=== PATIENT | male | born 1975 | race Caucasian/White ===

== ENCOUNTER 2023-11-20 12:35 | Outpatient (REF) | payer OTHER, SELFPAY ==
--- NOTE | 2023-11-20 | ECG_ITS ---
Test Reason : cp Blood Pressure : / mmHG Vent. Rate : 091 BPM Atrial Rate : 091 BPM P-R Int : 140 ms QRS Dur : 086 ms QT Int : 358 ms P-R-T Axes : 058 012 048 degrees QTc Int : 440 ms Normal sinus rhythm Normal ECG No previous ECGs available Referred By: Fide Lan Electronically Signed By:VIDAL SONI MD
[2023-11-20 13:10] LABS: MANUAL DIFF FLAG NO
[2023-11-20 13:37] LABS: Basophils Absolute Auto 0.1 X10*3/uL (0.0-0.2); Basophils Percent Auto 0.9 % (0-2); Eosinophils Absolute Auto 0.1 X10*3/uL (0.0-0.4); Eosinophils Percent Auto 1.1 % (0-4); Hematocrit 46.8 % (42.0-52.0); Hemoglobin 15.7 g/dl (14.0-18.0); Imm Gran Abs Auto 0.01 X10*3/uL (0.00-0.03); Imm Gran Pct Auto 0.1 % (0.0-0.4); Lymphocytes Absolute Auto 2.9 X10*3/uL (1.2-4.9); Lymphocytes Percent Auto 32.8 % (20-40); Mean Corpuscular HGB Conc 33.5 g/dl (31.0-36.0); Mean Corpuscular Hemoglobin 29.7 pg (27.0-33.0); Mean Corpuscular Volume 88.5 fL (80.0-98.0); Mean Platelet Volume 10.5 fL (9.4-12.4); Monocytes Absolute Auto 0.5 X10*3/uL (0.1-1.2); Monocytes Percent Auto 5.2 % (2-11); Neutrophils Absolute Auto 5.3 x10*3/uL (2.0-8.3); Neutrophils Percent Auto 59.9 % (45-73); Platelet Count 279 X10*3/uL (160-400); Red Blood Count 5.29 X10*6/uL (4.60-5.80); Red Cell Distribution Width 13.3 % (11.0-16.0); White Blood Count 8.9 X10*3/uL (4.8-10.8)
[2023-11-20 13:58] LABS: Estimated Average Glucose 103 mg/dL; Hemoglobin A1c % 5.2 % (<6.0)
[2023-11-20 14:23] LABS: Erythrocyte Sedimentation Rate 10 MM/HR (0-15)
[2023-11-20 14:25] LABS: Appearance Urine Clear; Color Urine Yellow; Glucose Urine UA Negative (Negative); Leukocyte Esterase Urine Negative (Negative); Nitrite Urine Negative (Negative); PH 6.5 (5.0-9.0); Urine Blood Negative (Negative); Urine Ketones Negative (Negative); Urine Protein Negative (Neg-Trace)
[2023-11-20 14:33] LABS: Alanine Aminotransferase 21 U/L (0-40); Albumin Level 4.5 g/dL (3.5-5.0); Alkaline Phosphatase 70 U/L (39-117); Anion Gap 13 (12-20); Aspartate Amino Transferase 15 U/L (5-37); Bilirubin Total 0.3 mg/dL (0.0-1.0); Blood Urea Nitrogen 11 mg/dL (9-16); C Reactive Protein 0.38 mg/dL (< or = 0.50); Calcium 9.5 mg/dL (8.4-10.2); Carbon Dioxide 25 mmol/L (22-29); Chloride 107 mmol/L (96-108); Estimated Glomerular Filt Rate > 60; Glucose Random 98 mg/dL (60-115); Sodium 141 mmol/L (135-145); TSH reflex Free T4 1.76 uIU/mL (0.32-4.0); Total Protein 7.3 g/dL (6.5-8.0); Vitamin D 25-OH Total 29.9 ng/mL (>30)
[2023-11-20 14:46] LABS: Folate 7.8 ng/mL (> or = 4.0); Vitamin B12 374 pg/mL (200-900)
[2023-11-20 15:00] LABS: Amphetamine Screen Urine Not Detected (Not Detect); Barbiturates, Urine Not Detected (Not Detect); Benzodiazepines Screen Urine Not Detected (Not Detect); Cannabinoid Screen Urine POSITIVE (Not Detect); Cocaine Screen Urine Not Detected (Not Detect); Fentanyl, urine Not Detected (Not Detect); Opiate Screen Urine Not Detected (Not Detect); Phencyclidine Screen Urine Not Detected (Not Detect)
[2023-11-20 17:08] LABS: CT PCR NOT DETECTED (Not Detect.); NG PCR NOT DETECTED (Not Detect.)
[2023-11-22 03:51] LABS: Syphilis Screen Nonreactive (Nonreactive)
[2023-11-22 04:11] LABS: HBS Num1 0.17 mIU/mL (0-7.99); HIV AB/AG Nonreactive (Nonreactive); HIV Num 1 0.06 S/CO (0.00-0.99); ~HepC Num1 0.12 S/CO (0.00-0.79); ~Hepatitis B Surface Antibody NONREACTIVE (Nonreactive); ~Hepatitis C Antibody Nonreactive (Nonreactive)
== END 2023-11-20 12:36 | disposition home or self-care (01) ==
LOC: HO.LAB 12:35
PROVIDERS: PCP Nurse Practitioner Family; Visit Provider Psychiatry & Neurology Psychiatry
DX: F39 Unspecified mood [affective] disorder (principal); F90.9 Attention-deficit hyperactivity disorder, unspecified type
CPT/HCPCS: 0353U; 80053; 80307; 81003; 82306; 82607; 82746; 83036; 84443; 85025; 85652; 86140; 86706; 86780; 86803; 87389; 93005

== ENCOUNTER → 2023-11-20 12:51 | Outpatient (BNV) | payer OTHER, SELFPAY | PROVIDERS: PCP Nurse Practitioner Family; Visit Provider Internal Medicine Cardiovascular Disease | DX: R07.9 Chest pain, unspecified (principal) | CPT/HCPCS: 93010 ==

== ENCOUNTER → 2023-11-25 11:30 | Outpatient (BNV) | payer OTHER, SELFPAY | PROVIDERS: Visit Provider Psychiatry & Neurology Psychiatry | DX: F31.81 Bipolar II disorder (principal); F45.42 Pain disorder with related psychological factors; F43.10 Post-traumatic stress disorder, unspecified; F90.9 Attention-deficit hyperactivity disorder, unspecified type; F12.10 Cannabis abuse, uncomplicated | CPT/HCPCS: 90792; 99213 ==

== ENCOUNTER 2023-12-08 10:15 | Outpatient (RCR) | payer OTHER, SELFPAY ==
[2023-11-20 12:29] VITALS: BP 123/83; PULSE 86; TEMP 37.1
[2023-11-20 12:30] VITALS: BMI 24.8
--- NOTE | 2023-11-20 14:25 | PC.ADMIT ---
Patient is a 48 year old male who was referred to [facility] by his therapist d/t depression and anxiety sxs. Alessandro has been living in a wooden tent for the past 15 months reporting financial struggles and is currently unemployed. Patient reports chronic back pain and attends a weekly pain group. Reports he takes Cyclobenzaprine 10 mg for the pain. Last filled 07/21/23 for 30 tabs. He also uses Marijuana nightly for the pain. Patient reports he has a fireplace which is his only form of heat. He does not have running water. Reports he is not eligible for heat assistance. He has been working with his mental health social worker on getting services for his specific needs. He does not want to go to a detention as he does not feel he would be safe there. Prior to his current living situation he stated he was living in a house in [place] where there was drug use. He reports that he is an alcoholic however has not drank in 6 months. Reports drinking less than a 6 pack. Also reports remote history of using heroin trying it 3-4 times 20 years ago, Percocets, Vicodins, and Oxycodones used in the year 1999 as he was self medicating d/t back pain. Patient is ambulatory however is in a wheel chair d/t his back pain. He reports he has herniated discs, bulging disc, and sciatica. He attends a pain group weekly. He reports he has a new PCP who he has an appointment with December 29, 2023. 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 He also reports chronic tinnitus that has worsened since September of this year and arthritis. Patient is alert and oriented x4. Calm and cooperative. He presented with depressed mood and affect. Denied SI. He was given a copy of his safety plan if needed. He is concerned about his living situation and has been working with his mental health social worker regarding this. He is currently on a list for housing. Patient medications were reconciled with patient and patient's pharmacy. Last filled Dextroamphetamine 5mg BID 08/10/24 #60. He is using this PRN so he is able to get things done when needed including obtaining firewood for heat.
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
--- NOTE | 2023-11-24 22:26 | HO.PHPPROGNO ---
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 He reports that he is still having trouble sleeping, has been taking the gabapentin 600 mg qhs. He falls asleep a little easier but is having disrupted sleep, sometimes nightmares, some stress dreams. He complains of some mild dizziness or just feel a little weird for a short time, which he attributes to the duloxetine (20 mg). He does not feel it is putting him at any risk of instability or falls. He is willing to continue on the medication and I suggest he move the dose to the evening, which he agrees to do. VS in room today was 132/86 P 88. Will recheck tomorrow His living situation contributes and is difficult to manage. He made efforts to improve hygiene but is still quite difficult with his deprived living conditions. He continues to express his gratitude and is still quite labile. He feels he has no emotional continence/regulation. He has an intense affect and communication style, very friendly, but is behaviorally appropriate. There is no irritability noted, patient denies any issues with anger or agitation. We agree to discuss mood stabilizers when we meet for follow-up next. For now we will plan to increase the gabapentin to target sleep and hopefully to provider some relief of neuropathic pain issues. He seems reluctant/distrustful of engaging in physical therapy, which he says he has done before. WIll continue to discuss. Currently describes helplessness, transient hopelessness, denies any SI. No thoughts of harming self or others at this time. Medication Compliance: Yes Side effects from medications: No Attending Groups: Yes Review of Systems Acute medical concerns: No Mental Status Exam Mental Status Exam Narrative: Alert, oriented, in no acute distress. Calm, cooperative, engaged. Hygiene poor but improved. Minimal grooming, stained clothes. Seated in wheelchair. No psychomotor agitation or neurovegetative retardation. Eye contact maintained. Mood depressed, affect full range of affect, sad, brightens on contact, some lability, no irritability noted. Speech normal. Thought process circumstantial. Thought content related to stressors, +feelings of helplessness, hopelessness, transient SI without intention or plan. Denies any thoughts of harming self or others. Denies aggressive ideation or HI. No paranoia or delusional content elicited. No evidence of psychosis. Insight and judgment fair/fair but adequate. Diagnostics Vital Signs (24Hr): BMI result Body Mass Index 24.8 Assessment & Plan Assessment & Plan (1) Major depressive disorder, recurrent: Status: Acute Code(s): F33.9 - Major depressive disorder, recurrent, unspecified (2) Other specified persistent mood disorders: Status: Acute Code(s): F34.89 - Other specified persistent mood disorders (3) ADHD (attention deficit hyperactivity disorder): Qualifiers: Attention deficit-hyperactivity disorder type: unspecified Qualified Code(s): F90.9 - Attention-deficit hyperactivity disorder, unspecified type Status: Acute Code(s): F90.9 - Attention-deficit hyperactivity disorder, unspecified type (4) Pain disorder associated with psychological and physical factors: Status: Acute Code(s): F45.42 - Pain disorder with related psychological factors (5) Post traumatic stress disorder (PTSD): Status: Acute Code(s): F43.10 - Post-traumatic stress disorder, unspecified (6) Cannabis abuse: Status: Acute Code(s): F12.10 - Cannabis abuse, uncomplicated Plan continue duloxetine 20 mg qd increase gabapentin to 900 mg qhs (if not tolerated, pregabalin vs TCA) (if does not tolerate duloxetine, may start Lamcital vs SGA/abilify vs TCA) may consider starting augmentation depression/ADHD with modafinil discussed starting guanfacine ER to target anxiety/BP continue Adderall 5mg BID prn concentration (alternatively may consider modafinil vs memantine which also may help w pain) continue clonidine 0.1-0.2 mg BID PRN anxiety continue clonazepam 0.5 mg BID PRN anxiety attacks continue cyclobenzaprine 10 mg qhs prn sleep quetiapine 12.5 - 25 mg whs prn sleep (patient not currently utilizing) will obtain a [facility]CA EKG and Lab work reviewed - vitamin D insufficiency VS and UDS as indicated continue to monitor Patient educated on: diagnosis, medication risk/benefits and substance abuse Informed Consent: understands Reason for contiued partial hosp. stay Substantial Risk for: inability to function and med/psych decompensation Certification I certify that partial hospital treatment is medically necessary due to the symptoms and problems resulting from the patient's mental illness and the failure to treat the patient at the partial hospital level of care would likely result in the patient requiring inpatient psychiatric care which could not be prevented at a less intensive level of care. Total time managing care of this patient today __30__ minutes. Discharge Plan Discharge Attending provider: Fide Lan Medications: New duloxetine 20 mg capsule,delayed release(DR/EC) See Rx Instructions .ROUTE .COMPLEX Qty: 30 0RF Rx Instructions: take one tablet po daily for a week, then increase one tablet po BID gabapentin 600 mg tablet 300 - 600 mg PO BEDTIME Qty: 14 0RF Continued quetiapine 25 mg tablet 12.5 - 25 mg PO BEDTIME cyclobenzaprine 10 mg tablet 10 mg PO BEDTIME PRN (Reason: back spasms) Patient Comments: Patient stated he uses PRN and still has this medication if needed. Dr Lan is aware. Rx Instructions: Last filled June,. clonazepam 0.5 mg tablet 0.5 mg PO BID No Action clonidine HCl 0.1 mg tablet 0.1 - 0.2 mg PO BID PRN (Reason: anxiety) dextroamphetamine-amphetamine 5 mg tablet 1 tab PO BID PRN (Reason: concentration) Patient Comments: Patient reports he uses as needed. He stated he still has this medication if needed. Dr Lan is aware. Rx Instructions: Last filled 08/10/24 60 tabs.
--- NOTE | 2023-11-25 15:21 | HO.PHP ---
Alessandro asked [facility] staff member around receiving support around his pain. PHP staff member disclosed that our program does not address pain as we are a mental health service. PHP staff noted that we can provide him with resources to pain management if that is something he is seeking. Alessandro disclosed that is the whole reason he is in the program. PHP staff member disclosed that if he is in pain, she suggests that he goes to the ER to access referrals or seek support around medical issues. Alessandro noted that he is not going to go today but maybe at another point. [facility] staff member was receptive and encouraged him to continue to work on areas around his mental health. Alessandro was receptive and thanked the clinician for providing clarification on the program.
--- NOTE | 2023-11-26 08:08 | PC.NURSE ---
Per patient PCP records that were obtained patient had a PCP appointment with Pati Coleman NP from [facility] on 11/12/23 to address persistent pain. Review PCP records for further information. He also is seen by [facility].
--- NOTE | 2023-11-26 16:07 | HO.PHP ---
Client's case has been opened and reviewed in treatment team.
--- NOTE | 2023-11-27 23:40 | HO.PHPPROGNO ---
Subjective Subjective Date of Service: 11/27/23 Reason For Visit: anxiety,depression Interim History: Patient seen for follow-up. Discusses issues with trauma responses , bad interactions he has had with family, specifically his father, recently Last time he saw his dad he didnt get a hug. Ongoing complaints around inability to focus, getting easily overwhelmed by situations and information. Mundane tasks are very difficult on account of executive dysfunction, even prepping food, is difficult to mange the steps involved. Complains of feeling autistic . Doesn't take Adderall regularly because often squirrels it away, afraid to run out. Has upcoming appointment on 12/08. Medication Compliance: Yes Side effects from medications: No Attending Groups: Yes Review of Systems Acute medical concerns: No Mental Status Exam Mental Status Exam Narrative: Alert, oriented, in no acute distress. Calm, cooperative, engaged. Poor hygiene, minimal grooming, stained clothes. Seated in wheelchair. No psychomotor agitation or neurovegetative retardation. Eye contact maintained. Mood depressed, affect full range of affect, sad, brightens on contact, some lability, no irritability noted. Speech normal. Thought process circumstantial. Thought content related to stressors, +feelings of helplessness, hopelessness, transient SI without intention or plan. Denies any thoughts of harming self or others. Denies aggressive ideation or HI. No paranoia or delusional content elicited. No evidence of psychosis. Insight and judgment fair/fair but adequate. Diagnostics Vital Signs (24Hr): BMI result Body Mass Index 24.8 Assessment & Plan Assessment & Plan (1) Mild bipolar II disorder, major depressive episode, in full remission, with rapid cycling: Status: Acute Code(s): F31.81 - Bipolar II disorder (2) Pain disorder associated with psychological and physical factors: Status: Acute Code(s): F45.42 - Pain disorder with related psychological factors (3) Post traumatic stress disorder (PTSD): Status: Acute Code(s): F43.10 - Post-traumatic stress disorder, unspecified (4) ADHD (attention deficit hyperactivity disorder): Qualifiers: Attention deficit-hyperactivity disorder type: unspecified Qualified Code(s): F90.9 - Attention-deficit hyperactivity disorder, unspecified type Status: Acute Code(s): F90.9 - Attention-deficit hyperactivity disorder, unspecified type (5) Cannabis abuse: Status: Acute Code(s): F12.10 - Cannabis abuse, uncomplicated Plan start Abilify 2 mg qhs start guanfacine ER qd in afternoon/evening discontinue gabapentin will plan to switch to Lyrica next week Patient educated on: diagnosis, medication risk/benefits and substance abuse Informed Consent: understands Reason for contiued partial hosp. stay Substantial Risk for: inability to function and med/psych decompensation Certification I certify that partial hospital treatment is medically necessary due to the symptoms and problems resulting from the patient's mental illness and the failure to treat the patient at the partial hospital level of care would likely result in the patient requiring inpatient psychiatric care which could not be prevented at a less intensive level of care. Total time managing care of this patient today __30__ minutes. Discharge Plan Discharge Attending provider: Fide Lan Medications: New gabapentin 600 mg tablet 300 - 600 mg PO BEDTIME Qty: 14 0RF aripiprazole 2 mg tablet 2 mg PO BEDTIME Qty: 20 0RF pregabalin [Lyrica] 25 mg capsule 25 mg PO BID Qty: 30 0RF guanfacine 1 mg tablet extended release 24 hr 1 mg PO DAILY Qty: 20 0RF modafinil 100 mg tablet 100 mg PO QAM Qty: 20 0RF Continued cyclobenzaprine 10 mg tablet 10 mg PO BEDTIME PRN (Reason: back spasms) Patient Comments: Patient stated he uses PRN and still has this medication if needed. Dr Lan is aware. Rx Instructions: Last filled June,. clonazepam 0.5 mg tablet 0.5 mg PO BID 20 Days Qty: 40 0RF Discontinued quetiapine 25 mg tablet 12.5 - 25 mg PO BEDTIME clonidine HCl 0.1 mg tablet 0.1 - 0.2 mg PO BID PRN (Reason: anxiety) No Action dextroamphetamine-amphetamine 5 mg tablet 1 tab PO BID PRN (Reason: concentration) Patient Comments: Patient reports he uses as needed. He stated he still has this medication if needed. Dr Lan is aware. Rx Instructions: Last filled 08/10/24 60 tabs. Stand Alone Forms: Patient Portal Discharge page Patient Education: Bipolar Disorder (DC) Print Language: Nepali
--- NOTE | 2023-12-08 22:15 | P.PNPSP_ITS ---
Subjective Subjective Date of Service: 12/08/23 Reason For Visit: anxiety,depression Interim History: Patient seen for follow-up, anticipating discharge at the end of program today.? Reports no acute issues or concerns. Medication compliant, medications well- tolerated. Denies any adverse effects.? Mood is stable.?Still feels he has a ways to go ADHD and cognitive dysfunction still problematic but says he is feeling more hopeful and is appreciative of his OP treaters and the support he has received. He also notes he will be seeing a neurologist today which he is looking forward to. He reports he slept great and has been eating more regularly. Appetite is recovering. He will be following up with his PCP Pati Coleman. Denies any hopelessness or SI. Denies thoughts of harming self or others at this time. Denies any aggressive ideation or HI. Denies any paranoia or AH or VH. Sleep, appetite, energy improving. Mental Status Exam Mental Status Exam Narrative: Alert, oriented, in no acute distress. Calm, cooperative, engaged. Poor hygiene, minimal grooming, stained clothes and hands. Seated in wheelchair, is capable to ambulate, but pain prevents him. Eye contact maintained. Mood better , affect full range of affect, brightens on contact, no lability, no irritability noted. Speech normal. Thought process circumstantial. Thought content related to stressors, +feelings of helplessness, trnasient hopelessness, but denies any SI. Denies any thoughts of harming self or others. Denies aggressive ideation or HI. No paranoia or delusional content elicited. No evidence of psychosis. Insight and judgment fair/fair but adequate. Diagnostics Vital Signs (24Hr): BMI result Body Mass Index 24.8 Assessment & Plan Assessment & Plan (1) Mild bipolar II disorder, major depressive episode, in full remission, with rapid cycling: Status: Acute Code(s): F31.81 - Bipolar II disorder (2) Pain disorder associated with psychological and physical factors: Status: Acute Code(s): F45.42 - Pain disorder with related psychological factors (3) Post traumatic stress disorder (PTSD): Status: Acute Code(s): F43.10 - Post-traumatic stress disorder, unspecified (4) ADHD (attention deficit hyperactivity disorder): Qualifiers: Attention deficit-hyperactivity disorder type: unspecified Qualified Code(s): F90.9 - Attention-deficit hyperactivity disorder, unspecified type Status: Acute Code(s): F90.9 - Attention-deficit hyperactivity disorder, unspecified type (5) Cannabis abuse: Status: Acute Code(s): F12.10 - Cannabis abuse, uncomplicated Plan Discharge from [facility] continue regular medications will defer further medication management to outpatient provider Refills sent to pharmacy Patient educated on: diagnosis, medication risk/benefits, substance abuse and TMS Informed Consent: understands Reason for contiued partial hosp. stay Substantial Risk for: stable for discharge Certification I certify that partial hospital treatment is medically necessary due to the symptoms and problems resulting from the patient's mental illness and the failure to treat the patient at the partial hospital level of care would likely result in the patient requiring inpatient psychiatric care which could not be prevented at a less intensive level of care. Total time managing care of this patient today __30__ minutes. Discharge Plan Discharge Attending provider: Fide Lan Medications: New gabapentin 600 mg tablet 300 - 600 mg PO BEDTIME Qty: 14 0RF aripiprazole 2 mg tablet 2 mg PO BEDTIME Qty: 20 0RF pregabalin [Lyrica] 25 mg capsule 25 mg PO BID Qty: 30 0RF guanfacine 1 mg tablet extended release 24 hr 1 mg PO DAILY Qty: 20 0RF modafinil 100 mg tablet 100 mg PO QAM Qty: 20 0RF Continued cyclobenzaprine 10 mg tablet 10 mg PO BEDTIME PRN (Reason: back spasms) Patient Comments: Patient stated he uses PRN and still has this medication if needed. Dr Lan is aware. Rx Instructions: Last filled June,. clonazepam 0.5 mg tablet 0.5 mg PO BID 20 Days Qty: 40 0RF Discontinued quetiapine 25 mg tablet 12.5 - 25 mg PO BEDTIME clonidine HCl 0.1 mg tablet 0.1 - 0.2 mg PO BID PRN (Reason: anxiety) No Action dextroamphetamine-amphetamine 5 mg tablet 1 tab PO BID PRN (Reason: concentration) Patient Comments: Patient reports he uses as needed. He stated he still has this medication if needed. Dr Lan is aware. Rx Instructions: Last filled 08/10/24 60 tabs. Stand Alone Forms: Patient Portal Discharge page Patient Education: Bipolar Disorder (DC) Print Language: Trinidadian
== END 2023-12-08 23:59 | disposition home or self-care (01) ==
LOC: HO.PHPA 10:15
PROVIDERS: Visit Provider Psychiatry & Neurology Psychiatry
DX: F33.9 Major depressive disorder, recurrent, unspecified (principal); F34.89 Other specified persistent mood disorders; F90.9 Attention-deficit hyperactivity disorder, unspecified type; F45.42 Pain disorder with related psychological factors; F43.10 Post-traumatic stress disorder, unspecified; F12.10 Cannabis abuse, uncomplicated; Z79.899 Other long term (current) drug therapy
CPT/HCPCS: 90791; 90853

== ENCOUNTER → 2025-02-02 07:39 | Outpatient (REF) | payer OTHER, SELFPAY ==
--- NOTE | 2025-02-02 07:46 | ECG_ITS ---
Test Reason : QTC CHECK Blood Pressure : */* mmHG Vent. Rate : 85 BPM Atrial Rate : 85 BPM P-R Int : 142 ms QRS Dur : 96 ms QT Int : 362 ms P-R-T Axes : 55 12 64 degrees QTcB Int : 430 ms Normal sinus rhythm with sinus arrhythmia Normal ECG When compared with ECG of 20-Nov-2023 12:51, No significant change was found Referred By: Fide Lan Electronically Signed By: SG PACHECO
[2025-02-02 08:03] LABS: MANUAL DIFF FLAG NO
[2025-02-02 08:10] LABS: Basophils Absolute Auto 0.1 X10*3/uL (0.0-0.2); Basophils Percent Auto 0.7 % (0-2); Eosinophils Absolute Auto 0.1 X10*3/uL (0.0-0.4); Eosinophils Percent Auto 1.2 % (0-4); Hematocrit 46.2 % (42.0-52.0); Hemoglobin 15.8 g/dl (14.0-18.0); Imm Gran Abs Auto 0.04 X10*3/uL (0.00-0.03); Imm Gran Pct Auto 0.5 % (0.0-0.4); Lymphocytes Percent Auto 25.8 % (20-40); Mean Corpuscular HGB Conc 34.2 g/dl (31.0-36.0); Mean Corpuscular Hemoglobin 29.4 pg (27.0-33.0); Mean Platelet Volume 10.1 fL (9.4-12.4); Monocytes Absolute Auto 0.4 X10*3/uL (0.1-1.2); Monocytes Percent Auto 5.5 % (2-11); Neutrophils Percent Auto 66.3 % (45-73); Platelet Count 270 X10*3/uL (160-400); Red Blood Count 5.37 X10*6/uL (4.60-5.80); Red Cell Distribution Width 12.9 % (11.0-16.0); White Blood Count 7.6 X10*3/uL (4.8-10.8)
[2025-02-02 08:25] LABS: Appearance Urine Clear; Color Urine Yellow; Glucose Urine UA Negative (Negative); Leukocyte Esterase Urine Negative (Negative); Nitrite Urine Negative (Negative); PH 6.5 (5.0-9.0); Specific Gravity - Urine <= 1.005 (1.005-1.025); Urine Blood Negative (Negative); Urine Ketones Negative (Negative); Urine Protein Negative (Neg-Trace)
[2025-02-02 08:44] LABS: Parathyroid Hormone Intact 78.9 pg/mL (8.7-77.1)
[2025-02-02 08:58] LABS: Alanine Aminotransferase 21 U/L (0-40); Albumin Level 4.5 g/dL (3.5-5.0); Alkaline Phosphatase 84 U/L (39-117); Anion Gap 12 (12-20); Aspartate Amino Transferase 23 U/L (5-37); Bilirubin Total 0.3 mg/dL (0.0-1.0); Blood Urea Nitrogen 10 mg/dL (9-16); C Reactive Protein 1.23 mg/dL (< or = 0.50); Calcium 9.5 mg/dL (8.4-10.2); Carbon Dioxide 23 mmol/L (22-29); Chloride 108 mmol/L (96-108); Cholesterol 234 mg/dL (<200); Erythrocyte Sedimentation Rate 10 MM/HR (0-15); Estimated Glomerular Filt Rate > 60; Glucose Fasting 113 mg/dL (60-99); HDL Cholesterol 30 mg/dL (>40); Iron 44 mcg/dL (45-160); LDL Cholesterol Calculated 169 mg/dL (<100); Magnesium 2.2 mg/dL (1.6-2.6); Percent Iron Saturation 15 % (15-50); Phosphorus 2.4 mg/dL (2.7-4.5); Potassium 4.1 mmol/L (3.3-5.1); Sodium 139 mmol/L (135-145); Total Iron Binding Capacity 298 mcg/dL (228-428); Total Protein 7.2 g/dL (6.5-8.0); Triglycerides 175 mg/dL (<150); Unsaturated Iron Binding 254 ug/dL; Uric Acid 6.7 mg/dL (3.4-7.0)
[2025-02-02 09:10] LABS: Ferritin 109 ng/mL (20-250); Free T4 (Free Thyroxine) 0.99 ng/dL (0.71-1.85); Thyroid Stimulating Hormone 1.35 uIU/mL (0.32-4.0); Vitamin D 25-OH Total 10.3 ng/mL (>30)
[2025-02-02 09:11] LABS: Vitamin B12 247 pg/mL (200-900)
[2025-02-02 09:25] LABS: Estimated Average Glucose 111 mg/dL; Hemoglobin A1C 149.9859 umol/L; Hemoglobin A1c % 5.5 % (<6.0); Total Hemoglobin (HGBA1C) 4136.2664 umol/L
[2025-02-06 13:07] LABS: Vitamin B6 8.1 ng/mL (2.1-21.7)
[2025-02-07 08:08] LABS: Methylmalonic Acid 93 nmol/L (55-335)
== END | disposition home or self-care (01) ==
LOC: HO.CARD 07:39
PROVIDERS: PCP Nurse Practitioner Family; Visit Provider Psychiatry & Neurology Psychiatry
DX: F39 Unspecified mood [affective] disorder (principal); R53.82 Chronic fatigue, unspecified; F45.9 Somatoform disorder, unspecified; Z13.1 Encounter for screening for diabetes mellitus; Z13.6 Encounter for screening for cardiovascular disorders
CPT/HCPCS: 36415; 80053; 80061; 81003; 82306; 82550; 82607; 82728; 82746; 83036; 83090; 83540; 83735; 83921; 83970; 84100; 84207; 84425; 84439; 84443; 84550; 85025; 85652; 86140; 93005

== ENCOUNTER → 2025-02-02 07:46 | Outpatient (BNV) | payer OTHER, SELFPAY | PROVIDERS: PCP Nurse Practitioner Family; Visit Provider Internal Medicine | DX: Z13.6 Encounter for screening for cardiovascular disorders (principal) | CPT/HCPCS: 93010 ==

== ENCOUNTER 2025-02-07 09:15 | Outpatient (RCR) | payer OTHER, SELFPAY ==
[2025-01-25 13:07] VITALS: BP 108/70; PULSE 72; TEMP 37.2
[2025-01-25 13:10] VITALS: BMI 27.8
--- NOTE | 2025-01-25 14:28 | PC.ADMIT ---
Patient is a 49 year old single male who was referred to [facility] by his therapist d/t increased depression and anxiety sxs. Patient struggling with many stresses including financial, housing, unemployment and chronic back pain. Patient has been living in a wooden tent and utilizes a fireplace for heat. He reports being on many waiting lists for housing. Patient utilizes a recumbent wheel chair to sit in d/t chronic back pain. He is able to ambulate without assistance. He stated he takes more than 200 steps a day. Denied any history of falls. Patient is alert and oriented x4. He is calm and cooperative. He presented with depressed mood and affect. He reports passive SI stating he has had this most of his life however he denied any plans or intention of killing himself. He was given a copy of his safety plan if needed. Medication list updated with patient and patient's pharmacy. Patient reports he is taking medications as prescribed
--- NOTE | 2025-01-25 21:00 | HO.PS.ADMBH ---
HPI Date of Service: 01/25/25 Chief Complaint: depression,anxiety Sources of Information: patient interviewed, chart reviewed and crisis/core team assessment reviewed HPI Narrative: Patient is a single 49 year old male on disability with history of depression, anxiety, chronic fatigue, executive dysfunction, memory impairment (likely ADHD as well as other causes of cognitive impairment), complex medical problems including chronic back pain,, deconditioning with chronic stressors involving homelessness and isolation due to financial constraints and complex medical issues and limited social supports outside of his medical and treaters, who was referred by his outpatient therapist for worsening mood and anxiety, negatively impacting functioning since this past winter. He is known to [facility] from prior admission in 10/2023 with struggles with mood dysregulation, lability, e is living situation contributes and is difficult to manage. with outpatient therapist and providers for ongoing struggles with mental and physical health problems, particularly lower back pain and mobility issues, that have been causing significant impairment in functioning and ability to care for self. Today, patient reports having long-standing cognitive issues, the exact nature of he is unclear, but describes emotional and attentional dysregulation, poor stress tolerance, getting easily overwhelmed by simple day-to-day tasks, and general executive dysfunction. Sleep is challenging on account of needing to intermittently keep the fire stocked with logs so it doesn't extinguish, Eating is also difficult on a ccount of financial constraints as well as mobility to obtain food and utilities to store or prepare food. He made efforts to improve hygiene he says but it's still quite difficult with his deprived living conditions. He expresses his gratitude and is still quite labile. He feels he has no emotional continence/regulation. He has an intense affect and communication style, very friendly, but is behaviorally appropriate. There is no irritability noted, patient denies any issues with anger or agitation. We agree to discuss mood stabilizers when we meet for follow-up next. we disucssed gabapentin to target sleep and hopefully to provide some relief of neuropathic pain issues. He seems reluctant/distrustful of engaging in physical therapy, which he says he has done before. WIll continue to discuss. Currently describes helplessness, transient hopelessness, denies any SI. No thoughts of harming self or others at this time. He expresses much appreciation for being afforded the opportunity to participate in the program and says it has been a very supportive environment and was very tearful, relaying his desperation yet trying to hold up a positive attitude and says he wants to remain hopeful as much as he can. Chronic pain appears to be a significant contributor to his limitations, however patient is more focused on his neurocognitive limitations, and shares a lot anxiety and fears about his significant functional impairment and having great difficulty organizing himself, he describes struggles with critical thinking/problem-solving, says he has not been able to figure out what concrete steps he needs to take to get himself out of his depression and the miserable life circumstances he finds himself in. He demonstrates considerable emotional and attentional dysregulation, he continues to express thankfulness to his OP treaters and supports. He relays being motivated to make changes but feeling utterly incapable of sorting out all his problems and most days feeling so mentally and emotionally overwhelmed he feels paralyzed. Patient reports that he had been doing okay since leaving partial last spring and maintain some level of functionality despite ongoing hardship with his housing situation and limited mobility. In the interim he was able to qualify for disability Past Psychiatric History: IPLOC: denies PHP: 10/2023 at [facility] Denies any respite or detox/rehab admissions History strongly suggestive of ADHD Denies any known developmental history Therapist: Javier Psych provider: Debby Grant PCP: Pati Coleman Medication trials: Strattera, Prozac, Wellbutrin, Zoloft, Cymbalta, gabapentin, quetiapine, IR Adderall, gabapentin (AE:confusion ?hallucinations) (current meds) Abilify, clonidine, guanfacine ER, Adderall XR Denies any ECT, TMS or esketamine trials (although is currently exploring esketamine trtmt) CURRENT MEDICATIONS: Abilify 2 mg qhs guanfacine ER 1 mg qhs Adderall XR 5mg QAM PRN concentration (underutilized due to prolonging sleep onset) clonidine 0.1-0.2 mg BID PRN anxiety clonazepam 0.5 mg BID PRN anxiety attacks cyclobenzaprine 10 mg qhs prn sleep tizanidine 4 mg q 6hr PRN muscle spasm tramadol 50 mg BID prn pain fluticasone spray PRN PMFSH Medical History (Updated 04/30/25 @ 21:24 by Fide Lan MD) SI (sacroiliac) joint dysfunction Right hip pain Elevated glucose Hyperlipidemia Tinnitus Chronic back pain Torn meniscus Arthritis Sciatica Cervical herniated disc Lumbar herniated disc Narrative: Ambulate for short periods of time, but prefers remaining recumbent in his wheelchair which he says is easier on his back pain. Social History: Has spent last 12+ months awaiting housing assistance, been homelessness for past 2+ yrs lives in a wooden tent (a correction constructed from boards secured on top of a flat-bed trailer. It is difficult for him to move in 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 (His hands are noted to be back with ground in soot.) Diagnostics Vital Signs (24Hr): Vital Signs - 24 hr 01/25/25 13:07 Temperature 98.9 F Pulse Rate 72 Blood Pressure 108/70 BMI result Body Mass Index 27.8 Meds/Allergies Meds Home Medications ?Medication ?Instructions ?Recorded ?Confirmed ?Type aripiprazole 2 mg tablet 2 mg PO BEDTIME 01/25/25 01/25/25 History clonidine HCl 0.1 mg tablet 0.1 mg PO BID PRN anxiety 01/25/25 01/25/25 History dextroamphetamine-amphetamine ER 5 5 mg PO DAILY 01/25/25 01/25/25 History mg 24hr capsule,extend release (Adderall XR) fluticasone propionate 50 1 spray intranasal DAILY 01/25/25 01/25/25 History mcg/actuation nasal spray,suspension tizanidine 4 mg tablet 4 mg PO Q6H PRN Muscle spasms 01/25/25 01/25/25 History tramadol 50 mg tablet 50 mg PO BID PRN Pain 01/25/25 01/25/25 History Allergies Allergies Allergy/AdvReac Type Severity Reaction Status Date / Time diphenhydramine Allergy Tremulous, Verified 01/25/25 13:06 [From Banophen Anti-Itch] unable to walk. zinc acetate Allergy Tremulous, Verified 01/25/25 13:06 [From Banophen Anti-Itch] unable to walk. Mental Status Exam Mental Status Exam Narrative: Alert, oriented, otherwise in no acute distress. Calm, cooperative, engaged, pleasant. Hygiene and grooming are poor, soiled clothes. Knit, glasses. Seated in wheelchair (limited by chronic back pain ?deconditioning) No psychomotor agitation or neurovegetative retardation. Eye contact good. Mood depressed, affect depressed without lability or tearfulness. Speech normal. Thought process linear, coherent, circumstantial, no FOI or HERRERA. Thought content related to stressors, demoralization, transient helplessness, hopelessness, endorses passive SI, denies any intention or plan. Denies any thoughts of harming self or others. Denies aggressive ideation or HI. No paranoia or delusional content elicited. No evidence of psychosis. Insight intact and judgment fair-good. Assessment & Plan Assessment & Plan (1) Bipolar II disorder major depressive with atypical features: Status: Acute Code(s): F31.81 - Bipolar II disorder (2) Pain disorder associated with psychological and physical factors: Status: Acute Code(s): F45.42 - Pain disorder with related psychological factors (3) Post traumatic stress disorder (PTSD): Status: Acute Code(s): F43.10 - Post-traumatic stress disorder, unspecified (4) ADHD (attention deficit hyperactivity disorder): Status: Acute Qualifiers: Attention deficit-hyperactivity disorder type: unspecified Qualified Code(s): F90.9 - Attention-deficit hyperactivity disorder, unspecified type Code(s): F90.9 - Attention-deficit hyperactivity disorder, unspecified type (5) Cannabis use with anxiety disorder: Status: Acute Code(s): F12.980 - Cannabis use, unspecified with anxiety disorder Assessment and Plan: also for pain management Plan Admit to IOP plan to start pregabalin 25 mg bid-tid (hold off starting, will see if approved by insurance for now) continue Abilify 2 mg qd continue clonidine 0.1-0.2 mg BID PRN anxiety continue clonazepam 0.5 mg BID PRN anxiety attacks continue cyclobenzaprine 10 mg qhs prn sleep continue Adderall XR 5mg QAM prn concentration (underutilizing) discussed returning to short acting vs retrialing modaf discussed starting/consider memantine to target cognition, with potential benefits in managing ?ME/CFS consider antidepressant trials - venlafaxine, milnacipran or levomilnacipran, or perhaps a TCA routine lab work, including nutritional panel to rule out vit deficiencies given hx of food instability routine EKG ordered for medication considerations MassPat reviewed continue to monitor as per protocol I certify that the patient needs IOP Services for a minimum of 9 hours per week of therapeutic services. I certify the patient is experiencing symptoms of such intensity that they are unable to be safely treated in a less intensive setting and would otherwise require?admission to a more intensive level of care. Patient educated on: diagnosis, medication risk/benefits, substance abuse and medical condition Informed Consent: understands Reason for continued partial hosp. stay Substantial Risk for: inability to function and med/psych decompensation Certification I certify that the patient needs IOP Services for a minimum of 9 hours per week of therapeutic services. I certify the patient is experiencing symptoms of such intensity that they are unable to be safely treated in a less intensive setting and would otherwise require?admission to a more intensive level of care. Time Spent With Patient Time: Total time managing care of this patient today _90___ minutes.
--- NOTE | 2025-01-26 14:00 | HO.IOP ---
Clients case was opened and reviewed in teams today.
--- NOTE | 2025-01-27 13:03 | HO.PHPPROGNO ---
Subjective Subjective Date of Service: 01/27/25 Reason For Visit: depression,anxiety Interim History: Checked in with patient reporting some side effects. He reports starting on the Lyrica last night and then again this morning. He notes feeling ?little spacey... I definitely felt it . He is not certain if it was the combination of tramadol and Lyrica this morning that made him feel weird. He is going to hold off taking the afternoon dose since he has to drive home. Nonetheless he would like to try to continue taking the medication and is hoping he will adjust to it eventually as he feels already his pain today is a little bit better (?). He shares being very apprehensive about medications and med changes in general which is when the reasons his medications have continued at pretty much the same place as they were last year when he was at partial. He feels the Abilify has been a great help since we added on during his previous partial stay, and says this is why he is open to options we discussed the other day but would like to take these changes 1 medication at a time so as not to get overwhelmed. He also feels he is very sensitive to the effects of medication. He is eager to get his lab work done and plans to do it Thursday. He reports transient passive SI without urgent intention or plan. 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 He kindly shares some of his miniature water colors with me. Medication Compliance: Yes Side effects from medications: Yes (as noted above) Attending Groups: Yes Review of Systems Acute medical concerns: No Mental Status Exam Mental Status Exam Narrative: Alert, oriented, otherwise in no acute distress. Calm, cooperative, engaged, pleasant. Hygiene and grooming are poor, soiled clothes. Knit, glasses. Seated in wheelchair (limited by chronic back pain ?deconditioning) No psychomotor agitation or neurovegetative retardation. Eye contact good. Mood depressed, affect depressed without lability or tearfulness. Speech normal. Thought process linear, coherent, circumstantial, no FOI or HERRERA. Thought content related to stressors, demoralization, transient helplessness, hopelessness, endorses passive SI, denies any intention or plan. Denies any thoughts of harming self or others. Denies aggressive ideation or HI. No paranoia or delusional content elicited. No evidence of psychosis. Insight intact and judgment fair-good. Diagnostics Vital Signs (24Hr): BMI result Body Mass Index 27.8 Assessment & Plan Assessment & Plan (1) Bipolar II disorder major depressive with atypical features: Status: Acute Code(s): F31.81 - Bipolar II disorder (2) Pain disorder associated with psychological and physical factors: Status: Acute Code(s): F45.42 - Pain disorder with related psychological factors (3) Post traumatic stress disorder (PTSD): Status: Acute Code(s): F43.10 - Post-traumatic stress disorder, unspecified (4) ADHD (attention deficit hyperactivity disorder): Qualifiers: Attention deficit-hyperactivity disorder type: unspecified Qualified Code(s): F90.9 - Attention-deficit hyperactivity disorder, unspecified type Status: Acute Code(s): F90.9 - Attention-deficit hyperactivity disorder, unspecified type (5) Cannabis use with anxiety disorder: Status: Acute Code(s): F12.980 - Cannabis use, unspecified with anxiety disorder Assessment and Plan: also for pain management Plan continue IOP for now just take pregabalin 25 mg daily in evening until better tolerated (will titrate dose as tolerated) continue Abilify 2 mg qd continue clonidine 0.1-0.2 mg BID PRN anxiety continue clonazepam 0.5 mg BID PRN anxiety attacks continue cyclobenzaprine 10 mg qhs prn sleep continue Adderall XR 5mg QAM prn concentration (underutilizing) discussed returning to short acting vs retrialing modaf discussed starting/consider memantine to target cognition, with potential benefits in managing ?ME/CFS consider antidepressant trials - venlafaxine, milnacipran or levomilnacipran, or perhaps a TCA, ?wellbutrin routine lab work, including nutritional panel to rule out vit deficiencies given hx of food instability routine EKG ordered for medication considerations MassPat reviewed continue to monitor as per protocol I certify that the patient needs IOP Services for a minimum of 9 hours per week of therapeutic services. I certify the patient is experiencing symptoms of such intensity that they are unable to be safely treated in a less intensive setting and would otherwise require?admission to a more intensive level of care. Patient educated on: diagnosis and medication risk/benefits Informed Consent: understands Reason for contiued partial hosp. stay Substantial Risk for: inability to function and med/psych decompensation Certification I certify that the patient needs IOP Services for a minimum of 9 hours per week of therapeutic services. I certify the patient is experiencing symptoms of such intensity that they are unable to be safely treated in a less intensive setting and would otherwise require?admission to a more intensive level of care. Total time managing care of this patient today __30__ minutes. Discharge Plan Discharge Attending provider: Fide Lan Medications: New pregabalin 25 mg capsule 25 mg PO TID Qty: 30 0RF Continued aripiprazole 2 mg tablet 2 mg PO BEDTIME Patient Comments: Patient stated he takes at bedtime. 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 Rx Instructions: Patient takes as needed. dextroamphetamine-amphetamine [Adderall XR] 5 mg Capsule,Extended Release 24hr 5 mg PO DAILY Changed clonazepam 0.5 mg tablet 0.5 mg PO BID PRN (Reason: Severe anxiety or Panic) Qty: 30 0RF guanfacine 1 mg tablet extended release 24 hr 1 mg PO BEDTIME Qty: 30 0RF Rx Instructions: Last filled 10/20/24 #90 Print Language: Malay
--- NOTE | 2025-01-27 13:44 | HO.PHP ---
[facility] staff member met with Alessandro due to him leaving group two, which was weekend planning. PHP staff member explored with Alessandro what was occurring. Alessandro noted that the group was triggering because group members noted for self-care they are going to take a shower. Alessandro voiced that this caused him to then reflect on his life and look at where he is at now. Alessandro talked about the challenges he faces with not having the basic necessities and how that impacts his life. PHP staff member engaged in reflective listening and informed Alessandro if he needs any additional resources for shelters or places to shower, a [facility] staff member can provide him with that. Alessandro was receptive and is already aware of those resources. Alessandro mentioned that he has applied for housing and it is a six month to a year waitlist. Alessandro recognizes that this is temporary but at times finds it depressing to see where he is in life. [facility] staff member empathized with Alessandro. Alessandro was able to regulate and return to the group setting.
--- NOTE | 2025-01-27 14:14 | HO.IOP ---
IOP staff member met with Alessandro due to him leaving group two, which was weekend planning. IOP staff member explored with Alessandro what was occurring. Alessandro noted that the group was triggering because group members noted for self-care they are going to take a shower. Alessandro voiced that this caused him to then reflect on his life and look at where he is at now. Alessandro talked about the challenges he faces with not having the basic necessities and how that impacts his life. IOP staff member engaged in reflective listening and informed Alessandro if he needs any additional resources for shelters or places to shower, a IOP staff member can provide him with that. Alessandro was receptive and is already aware of those resources. Alessandro mentioned that he has applied for housing and it is a six month to a year waitlist. Alessandro recognizes that this is temporary but at times finds it depressing to see where he is in life. IOP staff member empathized with Alessandro. Alessandro was able to regulate and return to the group setting.
--- NOTE | 2025-02-03 23:28 | P.PNPSP_ITS ---
Subjective Subjective Date of Service: 02/03/25 Reason For Visit: depression,anxiety Interim History: Patient seen for follow-up. Expressed appreciation for being at the program, has appreciated the support especially as he is continue to struggle with his mental health, housing and food security, limited contacts and minimal socialization outside of providers, and other general life adversity. ?I am in the triage of life so to speak?. The sedation from Lyrica has cleared up since we discontinued the medication. He had similar reaction to gabapentin as well in the past with extreme sensitivity to even the lowest dose. He reports his mood is ?awkwardly good in some moments but says he still has low overall mood and periods of emotionally struggling, especially after losing his cat. ?I have spent too much time alone it is good I am here helpful for processing and just for being around others?. 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 Very pleasant overall found to be calmer and more insightful this admission. He feels the Abilify has been very helpful addition since his last admission especially in terms of mood regulation. He increased his dose last night to 3 mg as we had previously discussed. He denies any adverse effects. Did not feel particularly sedated by taking the additional half tablet after the program yesterday. We plan to spend another day at 3 mg but then will plan to increase to 3.5-5 mg as tolerated. Denies any SI, HI, AH, VH. Some issues around food security but says he can be just as limited by his unsubstantial appetite. Medication Compliance: Yes Side effects from medications: Yes Attending Groups: Yes Review of Systems Acute medical concerns: No Mental Status Exam Mental Status Exam Narrative: Alert, oriented, otherwise in no acute distress. Calm, cooperative, engaged, pleasant. Hygiene and grooming are poor, soiled clothes. Knit, glasses. Seated in wheelchair (limited by chronic back pain ?deconditioning) No psychomotor agitation or neurovegetative retardation. Eye contact good. Mood depressed, affect depressed without lability or tearfulness. Speech normal. Thought process linear, coherent, circumstantial, no FOI or HERRERA. Thought content related to stressors, demoralization, transient helplessness, hopelessness, endorses passive SI, denies any intention or plan. Denies any thoughts of harming self or others. Denies aggressive ideation or HI. No paranoia or delusional content elicited. No evidence of psychosis. Insight intact and judgment fair-good. Diagnostics Vital Signs (24Hr): BMI result Body Mass Index 27.8 Assessment & Plan Assessment & Plan (1) Bipolar II disorder major depressive with atypical features: Status: Acute Code(s): F31.81 - Bipolar II disorder (2) Pain disorder associated with psychological and physical factors: Status: Acute Code(s): F45.42 - Pain disorder with related psychological factors (3) Post traumatic stress disorder (PTSD): Status: Acute Code(s): F43.10 - Post-traumatic stress disorder, unspecified (4) ADHD (attention deficit hyperactivity disorder): Qualifiers: Attention deficit-hyperactivity disorder type: unspecified Qualified Code(s): F90.9 - Attention-deficit hyperactivity disorder, unspecified type Status: Acute Code(s): F90.9 - Attention-deficit hyperactivity disorder, unspecified type (5) Cannabis use with anxiety disorder: Status: Acute Code(s): F12.980 - Cannabis use, unspecified with anxiety disorder Assessment and Plan: also for pain management Plan Continue IOP discontinue pregabalin 25 mg (too sedating at 25 mg) increase Abilify to 3-4 mg qd continue clonidine 0.1-0.2 mg BID PRN anxiety continue clonazepam 0.5 mg BID PRN anxiety attacks continue cyclobenzaprine 10 mg qhs prn sleep continue Adderall XR 5mg QAM prn concentration (underutilizing) discussed returning to short acting vs retrialing modafanil discussed starting/consider memantine to target cognition, with potential benefits in managing ?ME/CFS start vitamin D2 [id number] daily for vitamin D deficiency consider antidepressant trials - venlafaxine, milnacipran or levomilnacipran, or perhaps a TCA routine lab work, including nutritional panel to rule out vit deficiencies given hx of food instability routine EKG ordered for medication considerations continue to monitor as per protocol I certify that the patient needs IOP Services for a minimum of 9 hours per week of therapeutic services. I certify the patient is experiencing symptoms of such intensity that they are unable to be safely treated in a less intensive setting and would otherwise require?admission to a more intensive level of care. Patient educated on: diagnosis, medication risk/benefits and medical condition Informed Consent: understands Reason for contiued partial hosp. stay Substantial Risk for: inability to function and med/psych decompensation Certification I certify that partial hospital treatment is medically necessary due to the symptoms and problems resulting from the patient's mental illness and the failure to treat the patient at the partial hospital level of care would likely result in the patient requiring inpatient psychiatric care which could not be prevented at a less intensive level of care. Total time managing care of this patient today __30__ minutes. Discharge Plan Discharge Attending provider: Fide Lan Medications: New pregabalin 25 mg capsule 25 mg PO TID Qty: 30 0RF aripiprazole 2 mg tablet 4 mg PO BEDTIME Qty: 30 0RF ergocalciferol (vitamin D2) [Vitamin D2] 1,250 mcg (50,000 unit) capsule 1,250 mcg PO QWEEK Qty: 14 0RF aripiprazole 5 mg tablet 5 mg PO BEDTIME Qty: 30 0RF Continued aripiprazole 2 mg tablet 2 mg PO BEDTIME Patient Comments: Patient stated he takes at bedtime. clonidine HCl 0.1 mg tablet 0.1 mg PO BID PRN (Reason: anxiety) tizanidine 4 mg Tablet 4 mg PO Q6H PRN (Reason: Muscle spasms) tramadol 50 mg tablet 50 mg PO BID PRN (Reason: Pain) fluticasone propionate 50 mcg/actuation spray,suspension 1 spray intranasal DAILY Patient Comments: Patient showed this television writer Flonase nasal spray bottle that he takes as needed. Rx Instructions: Patient takes as needed. dextroamphetamine-amphetamine [Adderall XR] 5 mg Capsule,Extended Release 24hr 5 mg PO DAILY Changed clonazepam 0.5 mg tablet 0.5 mg PO BID PRN (Reason: Severe anxiety or Panic) Qty: 30 0RF guanfacine 1 mg tablet extended release 24 hr 1 mg PO BEDTIME Qty: 30 0RF Rx Instructions: Last filled 10/20/24 #90 Print Language: Turkish
[2025-02-07 10:39] VITALS: BP 116/74; PULSE 68
--- NOTE | 2025-02-07 23:30 | P.PNPSP_ITS ---
Subjective Subjective Date of Service: 02/07/25 Reason For Visit: depression,anxiety Interim History: Patient seen for follow-up, anticipating discharge at the end of program today.? Reports no acute issues or concerns. Medication compliant, medications well- tolerated. Denies any adverse effects.? Mood is stable.? Denies any hopelessness or SI. Denies thoughts of harming self or others at this time. Denies any aggressive ideation or HI. Denies any paranoia or AH or VH. Sleep, appetite, energy stable. Alert, oriented, in no acute distress. Calm, cooperative. Mood stable, affect appropriate. Speech normal. Thought process linear, coherent, more goal- directed. Thought content related to stressors, future-oriented, denies any helplessness, hopelessness or SI.? No aggressive ideation or HI. No paranoia or delusional content elicited. No evidence of psychosis. Insight and judgment f air-good. Discharge from [facility] Continue regular medications Refills sent to pharmacy Will defer further medication management to outpatient provider *Safety plan reviewed *Discharge diagnoses, treatment course, discharge plan have been reviewed with patient (including medication regime, medication management, potential side effects) as well as treatment rationale were also revisited *Discharge paperwork signed and given to patient, copy sent for scanning to chart Diagnostics Vital Signs (24Hr): Vital Signs - 24 hr 02/07/25 10:39 Pulse Rate 68 Blood Pressure 116/74 BMI result Body Mass Index 27.8 Assessment & Plan Certification I certify that partial hospital treatment is medically necessary due to the symptoms and problems resulting from the patient's mental illness and the failure to treat the patient at the partial hospital level of care would likely result in the patient requiring inpatient psychiatric care which could not be prevented at a less intensive level of care. Total time managing care of this patient today ____ minutes. Discharge Plan Discharge Attending provider: Fide Lan Medications: New ergocalciferol (vitamin D2) [Vitamin D2] 1,250 mcg (50,000 unit) capsule 1,250 mcg PO QWEEK Qty: 14 0RF cyanocobalamin (vitamin B-12) [Vitamin B-12] 500 mcg tablet 1,000 mcg PO DAILY Qty: 30 2RF Continued clonidine HCl 0.1 mg tablet 0.1 mg PO BID PRN (Reason: anxiety) tizanidine 4 mg Tablet 4 mg PO Q6H PRN (Reason: Muscle spasms) tramadol 50 mg tablet 50 mg PO BID PRN (Reason: Pain) fluticasone propionate 50 mcg/actuation spray,suspension 1 spray intranasal DAILY Patient Comments: Patient showed this web content writer Flonase nasal spray bottle that he takes as needed. Rx Instructions: Patient takes as needed. dextroamphetamine-amphetamine [Adderall XR] 5 mg Capsule,Extended Release 24hr 5 mg PO DAILY aripiprazole 5 mg tablet 5 mg PO BEDTIME Qty: 30 0RF clonazepam 0.5 mg tablet 0.5 mg PO BID PRN (Reason: Anxiety) Qty: 30 0RF Changed guanfacine 1 mg tablet extended release 24 hr 1 mg PO BEDTIME Qty: 30 0RF Rx Instructions: Last filled 10/20/24 #90 aripiprazole 2 mg tablet 2 mg PO BEDTIME PRN (Reason: Agitation, anxiety) Qty: 30 0RF Patient Comments: Patient stated he takes at bedtime. Discontinued clonazepam 0.5 mg tablet 0.5 mg PO BID Patient Education: Depression (ED), Depression (DC), Anxiety (ED) Print Language: Kosovan
== END 2025-02-07 23:59 | disposition home or self-care (01) ==
LOC: HO.IOP 09:15
PROVIDERS: Visit Provider Psychiatry & Neurology Psychiatry
DX: F31.81 Bipolar II disorder (principal); F45.42 Pain disorder with related psychological factors; F43.10 Post-traumatic stress disorder, unspecified; F90.9 Attention-deficit hyperactivity disorder, unspecified type; F12.980 Cannabis use, unspecified with anxiety disorder; Z79.899 Other long term (current) drug therapy
CPT/HCPCS: 90791; S9480